=== PATIENT | female | born 1995 | race Caucasian/White ===

== ENCOUNTER 2024-07-02 13:22 | Emergency (ER) | payer BC ==
[~2024-07-02] VITALS: Ht 172.7 cm; Wt 90.7 kg
[2024-07-02 13:38] VITALS: BP_SYST 112; PULSE 82; RESP 18; TEMP 98.2; O2SAT 100
[2024-07-02 14:03] LABS: BILIRUBIN,URINE NEGATIVE (NEGATIVE); CLARITY/URINE CLEAR (CLEAR); COLOR,URINE YELLOW (YELLOW); GLUCOSE,URINE NEGATIVE (NEGATIVE); KETONES,URINE NEGATIVE (NEGATIVE); LEUKOCYTE ESTERASE ,URINE TRACE (NEGATIVE); NITRITE, URINE POSITIVE (NEGATIVE); PROTEIN URINE NEGATIVE (NEGATIVE); UROBILINOGEN,URINE 0.2 (0.2-1.0)
[2024-07-02 14:04] LABS: BLOOD, URINE TRACE (NEGATIVE)
[2024-07-02 14:09] LABS: BACTERIA,URINE MODERATE /HPF (None Seen); MUCUS,URINE None Seen /LPF (None Seen); RBC,URINE 0-3 /HPF (0-3); WBC,URINE 20-50 /HPF (0-3)
[2024-07-02] MEDS ORDERED: IBUP-1969 PO (14:19)
[2024-07-02] MEDS ORDERED: NITR-85 PO (14:19)
[2024-07-02] MEDS: KETOROLAC TROMETHAMINE 60 MG/2 ML VIAL IM ONE (14:48)
[2024-07-02] MEDS: HYDROcodone/ACETAMIN 10-325 MG TAB PO ONE (14:48)
[2024-07-02 15:29] VITALS: BP_SYST 125; PULSE 79; RESP 18; TEMP 97.8; O2SAT 97
== END 2024-07-02 15:29 | disposition home or self-care (01) ==
LOC: SED 13:22
DX: N39.0 Urinary tract infection, site not specified (principal); M54.50 Low back pain, unspecified
CPT/HCPCS: 99284; 81001; 87086; 87186; 72100; 81025; 96372; 81000; 81015; J1885